=== PATIENT | female | born 2000 | race African-American/Black ===

== ENCOUNTER 2022-11-03 15:55 | Inpatient (IN) | payer MEDICAID, OTHER ==
[~2022-11-03] VITALS: Ht 170.2 cm; Wt 74.8 kg
[2022-11-03] MEDS ORDERED: LORAZEPAM 2MG/ML CPJ IM ONE (16:00)
[2022-11-03] MEDS ORDERED: LEVETIRACETAM 500MG PREMIX 100 ML IV ONE (16:15)
[2022-11-03] MEDS ORDERED: SODIUM CHLORIDE 0.9% 1,000 ML IV ONE (16:15)
[2022-11-03] MEDS ORDERED: POTASSIUM CHLORIDE 20MEQ TABLET SR PO ONE (16:30)
[2022-11-03 16:34] LABS: BASOPHILS % 0.5 % (0.0-2.0); DIFFERENTIAL COMMENT 0; EOSINOPHILS % 3.3 % (0.0-5.0); HEMATOCRIT. 34.6 % (36.0-48.0); LYMPHOCYTES % 42.8 % (20.0-50.0); MEAN CORPUSCULAR HEMOGLOBIN 24.3 pg (28.0-32.0); MEAN CORPUSCULAR HGB CONC 31.7 g/dL (31.0-37.0); MEAN CORPUSCULAR VOLUME 76.7 fL (81.0-99.0); MEAN PLATELET VOLUME 8.3 fl (7.4-10.4); MONOCYTES % 9.8 % (2.0-8.0); NEUTROPHILS % 43.6 % (40.0-76.0); PLATELET 235 x1000/uL (130-400); RED BLOOD CELL COUNT 4.51 mill/uL (4.2-5.4); RED CELL DISTRIBUTION WIDTH 20.9 % (11.6-14.6); WHITE BLOOD COUNT 3.5 x1000/uL (4.5-11.0)
[2022-11-03 16:48] LABS: CHLORIDE 108 mEq/L (98-107); INDEX HEMOLYSI 1 (1-3); INDEX ICTERIC 1 (1-4); INDEX LIPEMIC 1 (1-3); POTASSIUM 3.8 mEq/L (3.5-5.1); SODIUM 135 mEq/L (136-145)
[2022-11-03 16:51] LABS: AMMONIA 22 uMol/L (<32)
[2022-11-03 16:52] LABS: HCG SCREEN NEGATIVE
[2022-11-03 17:01] LABS: ALBUMIN 3.7 g/dL (3.4-5.0); BILIRUBIN TOTAL 0.3 mg/dL (0.1-1.0); CALCIUM 8.7 mg/dL (8.5-10.1); CARBON DIOXIDE 26 mEq/L (21-32); CREATININE 0.7 mg/dL (0.6-1.3); GLUCOSE 84 mg/dL (70-105); PROTEIN TOTAL 8.3 g/dL (6.0-8.3); UREA NITROGEN BLOOD 9 mg/dL (7-21)
[2022-11-03 17:02] LABS: ALANINE AMINOTRANSFERASE 20 IU/L (13-61); ASPARTATE AMINOTRANSFERASE 19 IU/L (15-37); ETHANOL BLOOD < 10 mg/dL (-10); THYROID STIMULATING HORMONE 0.65 uIU/mL (0.36-3.74)
[2022-11-03 17:13] LABS: TROPONIN I HIGH SENSITIVITY < 4 ng/L (<54)
[2022-11-03] MEDS ORDERED: LORAZEPAM 2MG/ML CPJ IV ONE (18:00)
[2022-11-03] MEDS ORDERED: DIPHENHYDRAMINE 50MG/ML VIAL IV ONE (18:00)
[2022-11-03 21:30] VITALS: BP 108/68; PULSE 110; RESP 16; TEMP 96.8
[2022-11-03] MEDS ORDERED: LORAZEPAM 2MG/ML CPJ IV PRN (22:00)
[2022-11-03] MEDS: LEVETIRACETAM 500MG PREMIX 100 ML IV SCH (23:41)
[2022-11-04] VITALS: BP 108/68; PULSE 110; RESP 16; TEMP 96.8
[2022-11-04 03:45] VITALS: BP 115/68; PULSE 103; RESP 18; TEMP 97
[2022-11-04] MEDS ORDERED: LEVETIRACETAM 1000MG PREMIX 100 ML IV NR (03:45)
[2022-11-04] MEDS ORDERED: LORAZEPAM 2MG/ML CPJ IV NR (04:15)
[2022-11-04 06:14] LABS: *AMPHETAMINES SCREEN URINE NEGATIVE (NEGATIVE); *BARBITURATES SCREEN URINE NEGATIVE (NEGATIVE); *COCAINE SCREEN URINE NEGATIVE (NEGATIVE); ECSTASY MDMA SCREEN URINE NEGATIVE (NEGATIVE); METHADONE URINE SCREEN NEGATIVE (NEGATIVE); OPIATES URINE SCREEN NEGATIVE (NEGATIVE); PHENCYCLIDINE URINE SCREEN NEGATIVE (NEGATIVE)
[2022-11-04 06:15] LABS: *BENZODIAZEPINES SCREEN URINE PRESUMTIVE POSITIVE (NEGATIVE); CANNABINOID URINE SCREEN PRESUMTIVE POSITIVE (NEGATIVE)
[2022-11-04 08:00] VITALS: BP 123/77; PULSE 88; RESP 18; TEMP 96.9
[2022-11-04] MEDS: LORAZEPAM 2MG/ML CPJ IV PRN ×2 (09:15→10:33)
[2022-11-04] MEDS: LEVETIRACETAM 500MG PREMIX 100 ML IV SCH (09:26)
[2022-11-04 12:00] VITALS: BP 113/70; PULSE 67; RESP 18; TEMP 97.6
[2022-11-04] MEDS ORDERED: SODIUM CHLORIDE 0.9% 1,000 ML IV SCH (12:00)
[2022-11-04] MEDS ORDERED: GADOTERATE MEGLUMINE 5 MMOL/10 ML VIAL IV ONE (15:04)
[2022-11-04 16:00] VITALS: BP 124/48; PULSE 95; RESP 18; TEMP 97.3
[2022-11-04] MEDS ORDERED: KEPP500 MT (16:13)
[2022-11-04 17:13] VITALS: BP 114/50; PULSE 90; TEMP 98.6; O2SAT 100
== END 2022-11-04 18:55 | disposition home or self-care (01) | DRG 53 ==
LOC: ER 15:55 → EDBEDREQ 17:57 → EDBEDREQTM 17:57 → EDBEDREQ 17:58 → ENRESERV 19:11 → 8WST 21:45 → 5EST 11-04 05:42
PROVIDERS: ADMIT Internal Medicine; ATTEND Internal Medicine
DX: G40.919 Epilepsy, unspecified, intractable, without status epilepticus (principal); E87.1 Hypo-osmolality and hyponatremia; D72.819 Decreased white blood cell count, unspecified; D64.9 Anemia, unspecified; F12.90 Cannabis use, unspecified, uncomplicated; Z91.010 Allergy to peanuts
CPT/HCPCS: 36415; 70553; 71045; 80053; 80305; 80320; 82140; 84443; 84484; 84703; 85025; 93005; 99285; A9577; J1200; J1953; J2060; J7030; G0480